=== PATIENT | male | born 1955 | race Caucasian/White ===

== ENCOUNTER → 2019-12-20 15:44 | Outpatient (BNVA) | payer SELFPAY | PROVIDERS: Family Provider Urology; PCP Urology; Visit Provider Urology | DX: N40.1 Benign prostatic hyperplasia with lower urinary tract symptoms (principal); N52.9 Male erectile dysfunction, unspecified; R97.20 Elevated prostate specific antigen [PSA] | CPT/HCPCS: 81001 ==

== ENCOUNTER → 2020-04-17 07:54 | Outpatient (BNVA) | payer SELFPAY | PROVIDERS: Family Provider Urology; PCP Urology; Visit Provider Urology | DX: N40.1 Benign prostatic hyperplasia with lower urinary tract symptoms (principal); R97.20 Elevated prostate specific antigen [PSA]; N52.9 Male erectile dysfunction, unspecified | CPT/HCPCS: 81003; 84153 ==

== ENCOUNTER → 2021-04-17 07:50 | Outpatient (BNVA) | payer MEDICARE, SELFPAY | PROVIDERS: Family Provider Urology; PCP Family Medicine; Visit Provider Urology | DX: N40.1 Benign prostatic hyperplasia with lower urinary tract symptoms (principal); R97.20 Elevated prostate specific antigen [PSA]; N52.9 Male erectile dysfunction, unspecified; Z80.42 Family history of malignant neoplasm of prostate | CPT/HCPCS: 81003; 84153 ==

== ENCOUNTER 2022-04-20 09:34 | Outpatient (CLI) | payer MEDICARE, SELFPAY ==
[2022-04-20 10:44] LABS: Prostate Specific AG Urology 5.29 ng/mL (0-4)
== END 2022-04-20 09:35 | disposition home or self-care (01) ==
LOC: LAB 09:40
PROVIDERS: PCP Family Medicine; Visit Provider Urology
DX: N40.1 Benign prostatic hyperplasia with lower urinary tract symptoms (principal)
CPT/HCPCS: 36415; 84153

== ENCOUNTER → 2022-04-23 08:24 | Outpatient (BNVA) | payer MEDICARE, SELFPAY | PROVIDERS: PCP Family Medicine; Visit Provider Urology | DX: N40.1 Benign prostatic hyperplasia with lower urinary tract symptoms (principal); R31.21 Asymptomatic microscopic hematuria; R97.20 Elevated prostate specific antigen [PSA]; N52.9 Male erectile dysfunction, unspecified; Z80.42 Family history of malignant neoplasm of prostate; N13.8 Other obstructive and reflux uropathy | CPT/HCPCS: 52000; 81003; 87086; 88112; 99214 ==

== ENCOUNTER 2022-05-28 12:15 | Outpatient (CLI) | payer MEDICARE, SELFPAY ==
--- NOTE | 2022-05-28 12:30 | CT_ITS ---
WS: [id number] EXAMINATION: CT abdomen pelvis wo con [id number] REASON FOR EXAM: ASYMPTOMATIC MIRCOSCOPIC HEMATURIA COMPARISON: None available. ORDER DATE: 05/28/2022 12:29 PM TOTAL EXAM DLP: 375.[address] scans at [facility] use at least one of these dose optimization techniques: automated e xposure control; mA and/or kV adjustment per patient size (includes targeted exams where dose is matc hed to clinical indication); or iterative reconstruction. TECHNIQUE: Axial CT imaging of the abdomen and pelvis performed without oral or intravenous contrast. 2-D Reformatted images are obtained. Contrast was deferred due to impaired renal function Evaluation of solid organs, bowel wall and vascular structures is limited due to the lack of IV contr ast. FINDINGS: LOWER THORAX: 4 mm slightly lobulated pulmonary nodule in the right middle lobe on axial image #3 LIVER: Normal in appearance as visualized. BILIARY: Normal appearance of the gallbladder with no biliary ductal dilatation. as visualized. SPLEEN: Normal. There are increased splenic collateral veins. PANCREAS: Normal in appearance ADRENALS: Normal in appearance KIDNEYS: Normal renal outlines. No sign of hydronephrosis. GI TRACT: There seems to be increased collateral vessels in the hepatogastric ligament The bowel is n ormal in caliber. No free intraperitoneal air is present. APPENDIX: Normal in appearance ABDOMINAL WALL: Unremarkable. No sign of abdominal wall collateral veins. RETROPERITONEUM/LYMPH/MESENTERIC NODES: No retroperitoneal or mesenteric lymphadenopathy identified. VESSELS: The great vessels of the abdomen are unremarkable. The portal vein appears to be enlarged PELVIC ORGANS: Bladder wall appears thickened but is decompressed and due to the under distended urin juvenal bladder, unable to evaluate the significance of the wall thickening. Heterogenous prostate enlarg ement elevating the bladder base. BONES: Chronic degenerative spine change, more significantly at L5-S1.. No suspicious osteolytic or o steoblastic lesions. . CT/CT abdomen pelvis wo con [id number] IMPRESSION: There are some equivocal findings suggesting portal hypertension as noted above although there is no definite sign of chronic liver disease recommend correlat ion with liver function tests. Equivocal bladder wall thickening due to decompression of the bladder at this t ki Heterogenous prostate enlargement recommend correlation with PSA values Pulmonary nodule right middle lobe recommend Fleischner criteria following
[2022-05-28 13:07] LABS: Blood Urea Nitrogen 32 mg/dL (8-23); Glomerular Filtration Rate 23.8 mL/min (90-130)
== END 2022-05-28 12:16 | disposition home or self-care (01) ==
LOC: RAD 12:17
PROVIDERS: PCP Family Medicine; Visit Provider Urology
DX: R31.21 Asymptomatic microscopic hematuria (principal); N40.0 Benign prostatic hyperplasia without lower urinary tract symptoms; R91.1 Solitary pulmonary nodule; R97.20 Elevated prostate specific antigen [PSA]; Z80.42 Family history of malignant neoplasm of prostate; R79.89 Other specified abnormal findings of blood chemistry
CPT/HCPCS: 74176; 82565; 84520; 99213

== ENCOUNTER 2022-08-13 16:14 | Emergency (ER) | payer MEDICARE, SELFPAY ==
[2022-08-13 16:15] VITALS: BMI 24.3
--- NOTE | 2022-08-13 16:16 | XRR_ITS ---
PROCEDURE INFORMATION: Exam: XR Chest Exam date and time: 08/13/2022 4:31 PM Age: 67 years old Clinical indication: Pain; Chest pressure; Additional info: Chest pain TECHNIQUE: Imaging protocol: Radiologic exam of the chest. Views: 1 view. COMPARISON: CT abdomen pelvis con [id number] 05/28/2022 2:06 PM FINDINGS: Lungs: Patchy bilateral lower lobe atelectasis versus pneumonia. Pleural spaces: No pleural effusion. No pneumothorax. Heart/Mediastinum: Stable moderate enlargement of the cardiac silhouette. Mediastinal contours are unremarkable. Bones/joints: Unremarkable for age. XR/XR chest 1V portable [id number] IMPRESSION: 1. Patchy bilateral lower lobe atelectasis versus pneumonia. Recommend followup chest imaging to insure resolution of these findings. 2. Incidental/nonacute findings are listed in the report.
--- NOTE | 2022-08-13 16:16 | ECG_ITS ---
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 Measurements Intervals [place] Rate: 75 P: 23 RI: 133 QRS: 11 QRSD: 100 T: 65 QT: 371 QTc: 417 Interpretive Statements SINUS RHYTHM WITH MARKED SINUS ARRHYTHMIA No previous ECG available for comparison Electronically Signed On 08-13-2022 17:59:19 CDT by Dutch Kruger M.D. [id number]
--- NOTE | 2022-08-13 16:22 | XRR_ITS ---
PROCEDURE INFORMATION: Exam: XR Abdomen Exam date and time: 08/13/2022 4:32 PM Age: 67 years old Clinical indication: Abdominal pain; Epigastric; Additional info: Epigastric abd pain TECHNIQUE: Imaging protocol: Radiologic exam of the abdomen. Views: Frontal supine view of the abdomen. 1 View. COMPARISON: CT abdomen pelvis wo con [id number] 05/28/2022 2:06 PM FINDINGS: Gastrointestinal tract: Increased fecal content in the colon. Nonobstructive bowel gas pattern. Intraperitoneal space: No free intraperitoneal air. Organs: No organomegaly. Bones/joints: Degenerative changes in the spine, sacroiliac joints, and hips. XR/XR abdomen 1V* [id number] IMPRESSION: 1. Nonobstructed bowel gas pattern. 2. Increased fecal content in the colon. 3. Incidental/nonacute findings are listed in the report.
--- NOTE | 2022-08-13 16:23 | W.ED.CHESTPA ---
HPI - Chest Pain General: Chief Complaint: Chest Pain Stated Complaint: CP Time Seen by Provider: 08/13/22 16:16 History of Present Illness: Patient presents to the ER with complaints of sudden onset substernal epigastric chest pain starting approximately 1:00 today. Patient states the pain has not gotten worse but definitely not gotten any better. Patient states he is having difficulty breathing taking big deep breaths. Patient was given aspirin, nitro, fentanyl in the ambulance on the way to the ER with no relief. Patient is never had anything like this before. MD complaint: chest pain (Epigastric abdominal pain) Onset (ago): hour(s) (About 3-1/2 hours ago) Timing of current episode: constant Prior episodes: No Pain location: substernal and epigastric Pain radiation: right arm Severity: moderate Quality: aching Relieving factors: nothing Exacerbating factors: palpation Associated symptoms: Reports abdominal pain Treatment prior to arrival: aspirin, nitroglycerin and oxygen Review of Systems General: Reports: 10 or more systems reviewed and unremarkable except in HPI and below GI: Reports: abdominal pain PFSH ED PFSH: Medical History Asymptomatic microscopic hematuria BPH loc w urin obs/LUTS Erectile dysfunction Family hx of prostate cancer Family History Mother , at age 86 Cancer COPD (chronic obstructive pulmonary disease) Father , at age 91 No problems noted. Other Afib Social History Smoking and tobacco status: former smoker Alcohol intake: current Alcohol intake frequency: few times a month Substance/Drug Use: unknown Adopted: No Caregiver/support person: No Lives independently: No Marital status: Current occupational status: retired Physical Exam Const: COMMON NORMALS: no acute distress, average body habitus, patient oriented x3, no limitations, healthy appearing, alert and well nourished HENMT: COMMON NORMALS: normocephalic, atraumatic, hearing grossly normal bilaterally, external ears normal, Normal external nose present and moist oral mucous membranes HEAD & SCALP: normocephalic and atraumatic NOSE: Normal external nose present EXTERNAL EAR: Yes external ears normal Eye: COMMON NORMALS: Equal, round and reactive pupils present, EOMs intact bilaterally, conjunctivae normal and no scleral icterus CONJUNCTIVA: Yes conjunctivae normal PUPIL: Yes Equal, round and reactive pupils present Neck/C-Spine: COMMON NORMALS: full ROM, no lymphadenopathy, supple, no meningeal signs, no JVD and Thyroid normal THYROID: Thyroid normal Lymph: LYMPHATIC: no lymphadenopathy noted and no lymphedema noted Chest: COMMONS NORMALS: normal inspection of the chest and normal palpation of entire chest wall Resp: COMMON NORMALS: normal respiratory effort, No retractions, No use of accessory muscles and clear to auscultation bilaterally AUSCULTATION: clear to auscultation bilaterally Cardio: COMMON NORMALS: no JVD, regular rate, regular rhythm, S1 normal heart sound present, S2 normal heart sound present, No clicks present (Cardio) and No murmurs present (Cardio) RATE: regular rate RHYTHM: regular rhythm HEART SOUNDS: S1 normal heart sound present and S2 normal heart sound present GI: OTHER: Tender to palpation over the epigastric area no hepatomegaly or masses noted no rebound guarding rigidity. Abdomen soft : COMMON NORMALS: Yes no CVA tenderness BLADDER/KIDNEY EXAM: Yes no CVA tenderness Back/Pelvis: COMMON NORMALS: no CVA tenderness Neuro: COMMON NORMALS: patient oriented x3 SENSORIUM/ORIENTATION: Yes alert MENINGEAL SIGNS: Yes no meningeal signs Course Vital Signs: Vital signs: Vital Signs Pulse Rate 73 08/13/22 17:56 Respiratory Rate 24 H 08/13/22 17:56 Blood Pressure 144/73 08/13/22 17:56 Pulse Oximetry 99 08/13/22 17:56 Oxygen Delivery Me thod Nasal Cannula 08/13/22 17:56 Oxygen Flow Rate 2 08/13/22 17:56 MDM - Chest Pain Medical Decision Making Patient presents to the ER with sudden onset substernal epigastric pain that got worse throughout the day. Patient said some of this pain does radiate to his right arm. Patient says taking big deep breaths give this worse. Patient was given aspirin nitro fentanyl in EMS with no relief. Patient did require more fentanyl and Dilaudid here for pain management. Lab work was obtained which showed a white count of 14.4 hemoglobin hematocrit of 10.5 and 33.6, sodium potassium was 135 and 5.2, BUN/creatinine was 31 and 2.1, x-ray showed patchy bilateral lower lobe atelectasis versus pneumonia abdominal x-ray showed nonobstructive bowel gas pattern noncontrasted CT scan of the chest abdomen pelvis again showed the pneumonia and it showed some retained fluid and ingested food in the esophagus. They suggested an upper GI exam. All these findings was discussed with the patient and his daughter. Patient will be discharged home on antibiotics and pain medicine and we will consult case management for an outpatient upper GI series. Patient should follow-up with his PCP after having it done or within 1 week as needed. Differential Diagnosis Unlikely acute massive pulmonary embolism, acute respiratory failure, acute myocardial infarction, cardiac arrest or sudden cardiac Medical Records I reviewed the patient's medical records. Lab Data I reviewed the patient's lab results. 08/13/22 16:24 08/13/22 16:24 Radiology Impressions Chest X-Ray 08/13/22 16:16 IMPRESSION: 1. Patchy bilateral lower lobe atelectasis versus pneumonia. Recommend followup chest imaging to insure resolution of these findings. 2. Incidental/nonacute findings are listed in the report. Abdomen X-Ray 08/13/22 16:22 IMPRESSION: 1. Nonobstructed bowel gas pattern. 2. Increased fecal content in the colon. 3. Incidental/nonacute findings are listed in the report. Chest/Abdomen/Pelvis CT 08/13/22 19:25 IMPRESSION: 1. Patchy atelectasis versus pneumonia in the right and left lower lobes, similar to the chest radiographs done earlier on 08/13/2022. Recommend followup chest imaging to insure resolution of these findings. 2. Mild body wall edema. 3. Retained fluid and ingested food in the esophagus. This could be due to retained esophageal contents from poor esophageal motility versus gastroesophageal reflux. Recommend clinical correlation. Upper GI examination may be obtained for further evaluation as clinically indicated. 4. Incidental/nonacute findings are listed in the report. IMPRESSION: 1. Mildly increased density layering in the gallbladder. This could represent noncalcified gallstones and/or gallbladder sludge. Ultrasound of the gallbladder may be obtained for further evaluation as clinically indicated. 2. Stable diffuse, moderate wall thickening of the bladder. In the correct clinical setting, this may suggest cystitis. Recommend correlation with laboratory findings. Alternatively, this may be secondary to chronic outlet obstruction. 3. Small volume ascites. 4. Mild body wall edema. 5. Incidental/nonacute findings are listed in the report. Laboratory Results WBC 14.4 10^3/uL (4.0-10.0) H 08/13/22 16:24 RBC 3.46 10^6/uL (4.1-5.3) L 08/13/22 16:24 Hgb 10.5 g/dL (11.7-16.6) L 08/13/22 16:24 Hct 33.6 % (42.0-52.0) L 08/13/22 16:24 MCV 97.1 fl (80-94) H 08/13/22 16:24 MCH 30.3 pg (28.0-34.0) 08/13/22 16:24 MCHC 31.3 g/dL (30.0-36.0) 08/13/22 16:24 RDW 13.8 % (12.1-15.1) 08/13/22 16:24 Plt Count 311 10^3/cmm (130-400) 08/13/22 16:24 MPV 9.6 fL (7.4-10.4) 08/13/22 16:24 Neut % (Auto) 91.6 % 08/13/22 16:24 Lymph % (Auto) 2.2 % 08/13/22 16:24 [place] % (Auto) 5.5 % 08/13/22 16:24 Eos % (Auto) 0.0 % 08/13/22 16:24 Baso % (Auto) 0.1 % 08/13/22 16:24 Neut # (Auto) 13.18 10^3/uL (1.8-7.7) H 08/13/22 16:24 Lymph # (Auto) 0.3 10^3/uL (0.8-4.8) L 08/13/22 16:24 [place] # (Auto) 0.8 10^3/uL (0.2-0.9) 08/13/22 16:24 Eos # (Auto) 0.0 10^3/uL (0.0-0.8) 08/13/22 16:24 Baso # (Auto) 0.0 10^3/uL (0.0-0.1) 08/13/22 16:24 Nucleated RBC % (auto) 0 % 08/13/22 16:24 Nucleated RBCs # 0.0 /100WBC 08/13/22 16:24 Sodium 135 mmol/L (136-145) L 08/13/22 16:24 Potassium 5.2 mmol/L (3.5-5.1) H 08/13/22 16:24 Chloride 101 mmol/L (98-107) 08/13/22 16:24 Carbon Dioxide 22 mmol/L (22-29) 08/13/22 16:24 Anion Gap 17.2 (5-19) 08/13/22 16:24 BUN 31 mg/dL (8-23) H 08/13/22 16:24 Creatinine 2.1 mg/dL (0.7-1.2) H 08/13/22 16:24 GFR Calculation 31.8 mL/min (90-130) L 08/13/22 16:24 Glucose 133 mg/dL (65-115) H 08/13/22 16:24 Calculated Osmolality 288 mOsm/kg (285-295) 08/13/22 16:24 Calcium 8.8 mg/dL (8.5-10.5) 08/13/22 16:24 Total Bilirubin 0.3 mg/dL (0.15-1.2) 08/13/22 16:24 AST 14 U/L (0-40) 08/13/22 16:24 ALT 20 U/L (0-41) 08/13/22 16:24 Alkaline Phosphatase 48 U/L (40-130) 08/13/22 16:24 Troponin T Baseline 19 ng/L (0-15) H 08/13/22 16:24 Troponin T 120 Minute 18.36 ng/L (0-15) H 08/13/22 18:40 Delta Troponin T -0.64 ABS# (0-10) L 08/13/22 18:40 C-Reactive Protein 3.0 mg/L (0.0-4.9) 08/13/22 16:24 NT-Pro-B Natriuret Pep 466 pg/mL (0-125) H 08/13/22 16:24 Total Protein 5.4 g/dL (6.6-8.7) L 08/13/22 16:24 Albumin 3.6 g/dL (3.5-5.2) 08/13/22 16:24 Globulin 1.8 g/dL (1.3-4.6) 08/13/22 16:24 Lipase 29 U/L (13-60) 08/13/22 16:24 Urine Color Yellow (Yellow) 08/13/22 19:37 Urine Appearance Hazy (CLEAR) A 08/13/22 19:37 Urine pH 5 (5-7) 08/13/22 19:37 Ur Specific [place] 1.025 (1.005-1.030) 08/13/22 19:37 Urine Protein 3+ (Negative) H 08/13/22 19:37 Urine Glucose (UA) Norm (Normal) 08/13/22 19:37 Urine Ketones 1+ (Negative) H 08/13/22 19:37 Urine Blood 3+ (Negative) H 08/13/22 19:37 Urine Nitrate Negative (Negative) 08/13/22 19:37 Urine Bilirubin Neg (Negative) 08/13/22 19:37 Urine Urobilinogen Norm mg/dL (Negative) 08/13/22 19:37 Ur Leukocyte Esterase Negative (Negative) 08/13/22 19:37 Urine RBC 80-100 /hpf (0-2) H 08/13/22 19:37 Urine WBC 5-10 /hpf (0-5) H 08/13/22 19:37 Ur Squamous Epith Cells 0-4 /hpf (0-5) H 08/13/22 19:37 Amorphous Sediment Not Reportable 08/13/22 19:37 Urine Bacteria 1+ /hpf (NONE) H 08/13/22 19:37 Hyaline Casts 5-10 /lpf H 08/13/22 19:37 Fine Granular Casts 0-4 /lpf H 08/13/22 19:37 Coarse Granular Casts 0-4 /lpf H 08/13/22 19:37 EKG Data EKG 1: I personally reviewed and interpreted this EKG as follows: EKG interpretation date: 08/13/22 EKG interpretation time: 16:38 Prior EKG tracings: not available for review Interpretation: EKG shows ventricular rate 75 bpm, NV interval 133, QRS duration 100, QTc 400, sinus rhythm with marked sinus arrhythmia, no ST-T wave changes EKG 2: I personally reviewed and interpreted this EKG as follows: EKG interpretation date: 08/13/22 EKG interpretation time: 18:29 Prior EKG tracings: available for review Interpretation: EKG showed ventricular rate 76 bpm, NV interval 135, QRS duration 93, QTc 382, sinus rhythm with frequent PVCs, no ST-T wave changes Discharge Plan Discharge Patient Disposition: Home Clinical Impression: Abdominal pain, acute, epigastric, Abnormal finding on imaging Pneumonia Qualifiers: Pneumonia type: due to unspecified organism Laterality: bilateral Lung location: lower lobe of lung Qualified Code(s): J18.9 - Pneumonia, unspecified organism Condition: Stable Prescriptions: New levofloxacin 500 mg tablet 500 mg PO DAILY 7 Days Qty: 7 0RF hydrocodone-acetaminophen 5-325 mg tablet 1 tab PO Q8H PRN (Reason: pain) Qty: 14 0RF No Action sildenafil 100 mg tablet See Rx Instructions .Route .COMPLEX Qty: 20 6RF Rx Instructions: 1 TAB 1 hour before intercourse, on empty stomach, NO NITROGLYCERIN sulfamethoxazole-trimethoprim 400-80 mg tablet 1 tab PO EVERY OTHER DAY prednisone 20 mg tablet 60 mg PO DAILY acetaminophen 325 mg Capsule 325 mg PO QID PRN (Reason: Pain) tamsulosin 0.4 mg capsule 0.4 mg PO BID Discharge Orders: Discharge ED (Routine); Ordered 08/13/22 Ordered By: Nahid Jones Referrals: Sasha Robles DO [Primary Care Provider] - 1 week Patient Instructions: Abdominal Pain (ED), Pneumonia (ED), Opioid Safety, Pain Management Activity Restrictions/Additional Instructions: Have been referred to case management scheduling for an outpatient upper GI study. Please await their call for scheduling. Please follow-up with your family practice doctor after this test and/or within the next 7 days for further evaluation and treatment. Coding Level of Care Code ED Fly Raiser Lockstitch for Moses [place]
[2022-08-13 16:24] VITALS: BP 123/73; PULSE 76; RESP 23; O2SAT 97
[2022-08-13] MEDS: lidocaine 2% viscous 15 ML, aluminum-mag hydrox-simethicon 30 ML, sucralfate oral liq 1 GM PO (16:35)
[2022-08-13 16:36] LABS: Basophils % 0.1 %; Hematocrit 33.6 % (42.0-52.0); Hemoglobin 10.5 g/dL (11.7-16.6); Lymphocytes # 0.3 10^3/uL (0.8-4.8); Lymphocytes % 2.2 %; Mean Corpuscular HGB Conc 31.3 g/dL (30.0-36.0); Mean Corpuscular Hemoglobin 30.3 pg (28.0-34.0); Mean Corpuscular Volume 97.1 fl (80-94); Mean Platelet Volume 9.6 fL (7.4-10.4); Monocytes # 0.8 10^3/uL (0.2-0.9); Monocytes % 5.5 %; Neutrophils # 13.18 10^3/uL (1.8-7.7); Neutrophils % 91.6 %; Nucleated Red Blood Cells % 0 %; Platelet Count 311 10^3/cmm (130-400); Red Blood Count 3.46 10^6/uL (4.1-5.3); Red Cell Distribution Width 13.8 % (12.1-15.1); White Blood Count 14.4 10^3/uL (4.0-10.0)
[2022-08-13 17:00] LABS: Troponin(5th) Baseline 19 ng/L (0-15)
[2022-08-13 17:10] LABS: Alanine Aminotransferase 20 U/L (0-41); Albumin Level 3.6 g/dL (3.5-5.2); Alkaline Phosphatase 48 U/L (40-130); Anion Gap 17.2 (5-19); Aspartate Amino Transferase 14 U/L (0-40); Blood Urea Nitrogen 31 mg/dL (8-23); Calcium 8.8 mg/dL (8.5-10.5); Carbon Dioxide 22 mmol/L (22-29); Chloride 101 mmol/L (98-107); Globulin 1.8 g/dL (1.3-4.6); Glomerular Filtration Rate 31.8 mL/min (90-130); Glucose 133 mg/dL (65-115); Lipase 29 U/L (13-60); NT Pro B Type Natriuretic Pept 466 pg/mL (0-125); Osmolality Calculated 288 mOsm/kg (285-295); Potassium 5.2 mmol/L (3.5-5.1); Sodium 135 mmol/L (136-145); Total Bilirubin 0.3 mg/dL (0.15-1.2); Total Protein 5.4 g/dL (6.6-8.7)
[2022-08-13 17:56] VITALS: BP 144/73; PULSE 73; RESP 24; O2SAT 99
[2022-08-13] MEDS: fentaNYL 50 mcg/mL INJ 2mL 100 MCG IVP (18:13)
--- NOTE | 2022-08-13 18:16 | ECG_ITS ---
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 Measurements Intervals [place] Rate: 76 P: -23 [place]: 135 QRS: 15 QRSD: 93 T: 48 QT: 351 QTc: 396 Interpretive Statements SINUS RHYTHM WITH FREQUENT SUPRAVENTRICULAR PREMATURE COMPLEXES Compared to ECG 08/13/2022 16:38:15 Sinus arrhythmia no longer present Electronically Signed On 08-13-2022 18:45:42 CDT by Dutch Kruger M.D. [email or web address]/store/OM/[id number]
[2022-08-13 19:17] LABS: Troponin 5 2HR 18.36 ng/L (0-15)
--- NOTE | 2022-08-13 19:25 | CTR_ITS ---
PROCEDURE INFORMATION: Exam: CT Chest Without Contrast; Diagnostic Exam date and time: 08/13/2022 7:45 PM Age: 67 years old Clinical indication: Abdominal pain; Other: Abnormal crx; Additional info: Ruq/epigastric abd pain, abnormal cxr, abd XR, TECHNIQUE: Imaging protocol: Diagnostic computed tomography of the chest without contrast. Sagittal and coronal reformatted images were created and reviewed. Radiation optimization: All CT scans at this facility use at least one of these dose optimization techniques: automated exposure control; mA and/or kV adjustment per patient size (includes targeted exams where dose is matched to clinical indication); or iterative reconstruction. REPORTING DATA: Count of CT and Cardiac NM exams in prior 12 months: This patient has received [address] and 0 known cardiac nuclear medicine studies in the 12 months prior to the current study. COMPARISON: CR XR chest 1V portable [id number] 08/13/2022 4:31 PM RADIATION DOSE METRICS: Total DLP (mGy-cm): 830 FINDINGS: Limitations: Evaluation of the mediastinum and vasculature is limited without intravenous contrast. Trachea: Tracheobronchial structures are patent. Lungs: Patchy atelectasis versus pneumonia in the right and left lower lobes, similar to the chest radiographs done earlier on 08/13/2022. No pulmonary parenchymal nodules or masses. Pleural spaces: No pneumothorax. No pleural effusion. Heart: Moderate enlargement of the heart. Esophagus: The esophagus is unremarkable. Mediastinal space: No mediastinal hematoma. No pneumomediastinum. Lymph nodes: No lymphadenopathy. Vasculature: Mild atherosclerotic changes in the visualized arteries. No evidence for aortic aneurysm. Pulmonary arteries are unremarkable. Pulmonary veins are unremarkable. Stomach and bowel: Retained fluid and ingested food in the esophagus. Bones/joints: Multilevel degenerative changes of varying severity in the visualized spine. Soft tissues: Mild body wall edema. PROCEDURE INFORMATION: Exam: CT Abdomen And Pelvis Without Contrast Exam date and time: 08/13/2022 7:45 PM Age: 67 years old Clinical indication: Abdominal pain; Other: Abnormal crx; Additional info: Ruq/epigastric abd pain, abnormal cxr, abd XR, TECHNIQUE: Imaging protocol: Computed tomography of the abdomen and pelvis without contrast. Sagittal and coronal reformatted images were created and reviewed. Radiation optimization: All CT scans at this facility use at least one of these dose optimization techniques: automated exposure control; mA and/or kV adjustment per patient size (includes targeted exams where dose is matched to clinical indication); or iterative reconstruction. REPORTING DATA: Count of CT and Cardiac NM exams in prior 12 months: This patient has received [address] and 0 known cardiac nuclear medicine studies in the 12 months prior to the current study. COMPARISON: CT abdomen pelvis wo con [id number] 05/28/2022 2:06 PM RADIATION DOSE METRICS: Total DLP (mGy-cm): 830 FINDINGS: Liver: The liver is unremarkable. Gallbladder and bile ducts: Mildly increased density layering in the gallbladder. No gallbladder wall thickening. No biliary ductal dilatation. Pancreas: The pancreas is unremarkable. No pancreatic ductal dilatation. Spleen: The spleen is unremarkable. Adrenal glands: The right and left adrenal glands are unremarkable. Kidneys and ureters: The right and left kidneys are unremarkable. The right and left ureters are unremarkable. Stomach and bowel: No acute abnormality in the stomach. No acute abnormality in the small bowel. No acute abnormality in the colon. Appendix: Appendix not definitely visualized. No inflammatory changes in the pericecal region however. Intraperitoneal space: Small volume ascites. No free intraperitoneal air. No loculated fluid collections to suggest an abscess. Vasculature: Unremarkable as visualized. Lymph nodes: No lymphadenopathy. Urinary bladder: Stable diffuse, moderate wall thickening of the bladder. Reproductive: Stable moderate enlargement of the prostate gland. Stable nonspecific parenchymal calcifications in the prostate gland. Bones/joints: Degenerative changes in the spine, sacroiliac joints, and hips. Soft tissues: Mild body wall edema. CT/[place] [id number] IMPRESSION: 1. Patchy atelectasis versus pneumonia in the right and left lower lobes, similar to the chest radiographs done earlier on 08/13/2022. Recommend followup chest imaging to insure resolution of these findings. 2. Mild body wall edema. 3. Retained fluid and ingested food in the esophagus. This could be due to retained esophageal contents from poor esophageal motility versus gastroesophageal reflux. Recommend clinical correlation. Upper GI examination may be obtained for further evaluation as clinically indicated. 4. Incidental/nonacute findings are listed in the report. IMPRESSION: 1. Mildly increased density layering in the gallbladder. This could represent noncalcified gallstones and/or gallbladder sludge. Ultrasound of the gallbladder may be obtained for further evaluation as clinically indicated. 2. Stable diffuse, moderate wall thickening of the bladder. In the correct clinical setting, this may suggest cystitis. Recommend correlation with laboratory findings. Alternatively, this may be secondary to chronic outlet obstruction. 3. Small volume ascites. 4. Mild body wall edema. 5. Incidental/nonacute findings are listed in the report.
[2022-08-13 19:28] LABS: Troponin 5 2HR Delta -0.64 ABS# (0-10)
[2022-08-13] MEDS: HYDROmorphone 1 mg/mL INJ 1 mL IVP (20:36)
[2022-08-13 20:40] LABS: Add Urine Microscopic? YES; Bilirubin Urine Neg (Negative); Blood Urine 3+ (Negative); Glucose Urine UA Norm (Normal); Ketones Urine 1+ (Negative); Leukocyte Esterase Urine Negative (Negative); Nitrate Urine Negative (Negative); Protein Urine 3+ (Negative); RBC Urine 80-100 /hpf (0-2); Specific Gravity, Urine 1.025 (1.005-1.030); Urine Appearance Hazy (CLEAR); Urine Color Yellow (Yellow); Urobilinogen Urine Norm (Negative); pH Urine 5 (5-7)
[2022-08-13 20:41] LABS: Add Urine Culture? Yes; Bacteria Urine 1+ /hpf; Coarse Granular Casts Urine 0-4 /lpf; Fine Granular Casts Urine 0-4 /lpf; Squamous Epithelial Cell Urine 0-4 /hpf (0-5)
--- NOTE | 2022-08-14 08:40 | DCPLANNER ---
Addendum entered by Isabelle Jose 08/18/22 10:24: manager pricing received the following message from the general surgery clinic regarding follow up appointment: Patient's daughter called in, I grabbed Monty to assist with call.. Jyotsna, patient's daughter stated that they ER told her we would call this morning to schedule upper GI.. I explained that patient needs an office visit first, and that I cannot get patient in till 09/02.. She was not happy with that and stated that there must be a lack of communication between everyone... I explained everything again, and she stated that she would have to call back.. - AU 08/14 Original Note: manager pricing had message to schedule a follow up appointment for patient with general surgery. manager pricing sent patients information to the front office staff at general surgery. Patients information will be printed and reviewed. Clinic will call patient with appointment information.
== END 2022-08-13 21:57 | disposition home or self-care (01) ==
PROVIDERS: Emergency Provider Emergency Medicine; PCP Family Medicine
DX: R10.13 Epigastric pain (principal); R94.8 Abnormal results of function studies of other organs and systems
CPT/HCPCS: 36415; 71045; 71250; 74018; 74176; 80053; 81001; 83690; 83880; 84484; 85025; 86140; 87086; 93005; 96374; 96375; 99285; J1170; J3010